=== PATIENT | female | born 1960 ===

== ENCOUNTER 2019-05-27 12:47 | Observation (INO) | payer BC ==
[2019-05-27] MEDS ORDERED: Albuterol/Ipratropium 3.0-0.5 MG/3 ML Neb Soln NEB ONE ×2 (12:58→15:23)
[2019-05-27] MEDS ORDERED: Levofloxacin/Dextrose 5%-Water 750 MG in Premix Bag 1 BAG IV ONE (12:59)
[2019-05-27] MEDS: Sodium Chloride 0.9% 1,000 ML IV SCH ×2 (13:12→23:35)
--- NOTE | 2019-05-27 13:19 | EDM.PDOC ---
ED HPI GENERAL MEDICAL PROBLEM - General Chief Complaint: Respiratory Problem Stated Complaint: COUGH Time Seen by Provider: 05/27/19 12:54 - History of Present Illness INITIAL COMMENTS - FREE TEXT/NARRATIVE: HISTORY AND PHYSICAL: History of present illness: Patient 58-year-old white female who presents with a concern of cough shortness of breath worsening over last week she was seen 1 week prior and diagnosed with pneumonia in the clinic she states she's had no improvement no fever chills nausea vomiting. Patient denies chest pain Review of systems: As per history of present illness and below otherwise all systems reviewed and negative. Past medical history: As per history of present illness and as reviewed below otherwise noncontributory. Surgical history: As per history of present illness and as reviewed below otherwise noncontributory. Social history: No reported history of drug or alcohol abuse. Family history: As per history of present illness and as reviewed below otherwise noncontributory. Physical exam: HEENT: Atraumatic, normocephalic, pupils reactive, negative for conjunctival pallor or scleral icterus, mucous membranes moist, throat clear, neck supple, nontender, trachea midline. Lungs: Coarse bilaterally with rhonchi and expiratory wheezing noted, breath sounds equal bilaterally, chest nontender. Heart: S1S2, regular, negative for clicks, rubs, or JVD. Abdomen: Soft, nondistended, nontender. Negative for masses or hepatosplenomegaly. Negative for costovertebral tenderness. Pelvis: Stable nontender. Genitourinary: Deferred. Rectal: Deferred. Extremities: Atraumatic, negative for cords or calf pain. Neurovascular unremarkable. Neuro: Awake, alert, oriented. Cranial nerves II through XII unremarkable. Cerebellum unremarkable. Motor and sensory unremarkable throughout. Exam nonfocal. Diagnostics: CBC CMP and BNP chest x-ray EKG blood culture 2 ABG Therapeutics: Levaquin 750 mg IV Solu-Medrol 125 mg IV albuterol ipratropium nebulizer saline at 125 mL an hour O2 2 L per nasal cannula daytime babysitter Impression: #1 dyspnea #2 history of pneumonia Definitive disposition and diagnosis as appropriate pending reevaluation and review of above. Chest Pain Score (Numeric/FACES): 8 - Related Data Allergies Allergy/AdvReac Type Severity Reaction Status Date / Time codeine Allergy Itching Verified 05/27/19 12:58 morphine Allergy Cannot Verified 06/29/16 11:15 Remember Penicillins Allergy Cannot Verified 06/29/16 11:15 Remember Home Meds: Home Meds Albuterol Sulfate 2 mg PO DAILY 05/27/16 [History] Albuterol [Proventil HFA] 6.7 gm INH Q6H 05/27/16 [History] Aspirin 325 mg PO DAILY 05/27/16 [History] Carvedilol 6.25 mg PO DAILY 05/27/16 [History] Hydrocodone/Acetaminophen [Hydrocodon-Acetaminophen 5-300] 1 each PO DAILY PRN 05/27/16 [History] Levothyroxine Sodium [Synthroid] 25 mcg PO DAILY 05/27/16 [History] Ondansetron HCl [Zofran] 4 mg PO DAILY PRN 05/27/16 [History] Pramipexole Di-HCl [Mirapex] 1.5 mg PO DAILY 05/27/16 [History] Simvastatin [Zocor] 20 mg PO ONETIME 05/27/16 [History] Trimethobenzamide HCl 100 gm MC DAILY 05/27/16 [History] buPROPion [Wellbutrin XL] 150 mg PO DAILY 05/27/16 [History] traMADol [Ultram] 50 mg PO ONETIME 05/27/16 [History] Past Medical History HEENT History: Reports: None Cardiovascular History: Reports: [place] Respiratory History: Reports: Asthma Gastrointestinal History: Reports: None Genitourinary History: Reports: None [employer] History: Reports: None Musculoskeletal History: Reports: None Neurological History: Reports: Alzheimers Disease Psychiatric History: Reports: None Endocrine/Metabolic History: Reports: None Hematologic History: Reports: None Immunologic History: Reports: None Oncologic (Cancer) History: Reports: None Dermatologic History: Reports: None - Infectious Disease History Infectious Disease History: Reports: Chicken Pox, Measles, Mumps - Past Surgical History Head Surgeries/Procedures: Reports: None HEENT Surgical History: Reports: Naso-Sinus Surgery Cardiovascular Surgical History: Reports: Coronary Artery Stent Respiratory Surgical History: Reports: None GI Surgical History: Reports: Bariatric Procedure Female Surgical History: Reports: Section, Other (See Below) Endocrine Surgical History: Reports: None Musculoskeletal Surgical History: Reports: Arthroscopic Knee, Other (See Below) Dermatological Surgical History: Reports: Plastic Surgical Reconstruction/Repair Social & Family History - Family History Family Medical History: Noncontributory - Tobacco Use Smoking Status *Q: Never Smoker - Caffeine Use Caffeine Use: Reports: None - Recreational Drug Use Recreational Drug Use: No - Living Situation & Occupation Living situation: Reports: , with Spouse Occupation: Employed ED ROS GENERAL - Review of Systems Review Of Systems: ROS reveals no pertinent complaints other than HPI. ED EXAM, GENERAL - Physical Exam Exam: See Below (See dictation) Course - Vital Signs Last Recorded V/S: Last Vital Signs Temp 36.7 C 05/27/19 12:55 Pulse 91 05/27/19 12:55 Resp 20 05/27/19 12:55 BP 142/91 H 05/27/19 12:55 Pulse Ox 89 L 05/27/19 12:55 - Orders/Labs/Meds Orders: Active Orders 24 hr Category Date Time Status EKG Documentation Completion [RC] STAT Care 05/27/19 12:56 Active RT Aerosol Therapy [RC] ASDIRECTED Care 05/27/19 12:59 Active B-TYPE NATRIURETIC PEPTIDE,BNP [CHEM] Stat Lab 05/27/19 13:18 Received CULTURE BLOOD [BC] Stat Lab 05/27/19 13:18 Received CULTURE BLOOD [BC] Stat Lab 05/27/19 13:28 Received Sodium Chloride 0.9% [Normal Saline] 1,000 ml Med 05/27/19 13:00 Active IV STAT Blood Culture x2 Reflex Set [OM.PC] Stat Oth 05/27/19 12:57 Ordered Medication Orders Sodium Chloride (Normal Saline) 1,000 mls @ 125 mls/hr IV STAT WENDY Last Admin: 05/27/19 13:12 Dose: 125 mls/hr Labs: Laboratory Tests 05/27/19 05/27/19 05/27/19 Range/Units 13:10 13:10 13:18 WBC 13.18 H (4.0-11.0) K/uL RBC 4.65 (4.30-5.90) M/uL Hgb 14.7 (12.0-16.0) g/dL Hct 44.4 (36.0-46.0) % MCV 95.5 (80.0-98.0) fL MCH 31.6 (27.0-32.0) pg MCHC 33.1 (31.0-37.0) g/dL RDW Std Deviation 47.9 (28.0-62.0) fl RDW Coeff of Danial 14 (11.0-15.0) % Plt Count 315 (150-400) K/uL MPV 9.90 (7.40-12.00) fL Neut % (Auto) 73.1 (48.0-80.0) % Lymph % (Auto) 21.2 (16.0-40.0) % Hettinger % (Auto) 4.7 (0.0-15.0) % Eos % (Auto) 0.8 (0.0-7.0) % Baso % (Auto) 0.2 (0.0-1.5) % Neut # (Auto) 9.6 H (1.4-5.7) K/uL Lymph # (Auto) 2.8 H (0.6-2.4) K/uL Hettinger # (Auto) 0.6 (0.0-0.8) K/uL Eos # (Auto) 0.1 (0.0-0.7) K/uL Baso # (Auto) 0.0 (0.0-0.1) K/uL Nucleated RBC % 0.0 /100WBC Nucleated RBCs # 0 K/uL INR ABG pH 7.453 H (7.35-7.45) ABG pCO2 34 L (35-45) mmHG ABG pO2 36 L* (75-100) mmHG ABG HCO3 24 (22-26) mEq/L ABG Total CO2 20.9 ABG Base Excess 0.4 (-2.0-2.0) Lactate 0.9 (0.20-2.00) mmol/L Sodium (136-145) mmol/L Potassium (3.5-5.1) mmol/L Chloride (98-107) mmol/L Carbon Dioxide (21.0-32.0) mmol/L BUN (7.0-18.0) mg/dL Creatinine (0.6-1.0) mg/dL Est Cr Clr Drug Dosing mL/min Estimated GFR (MDRD) ml/min Glucose (74-106) mg/dL Calcium (8.5-10.1) mg/dL Total Bilirubin (0.2-1.0) mg/dL AST (15-37) IU/L ALT (14-63) IU/L Alkaline Phosphatase (46-116) U/L Troponin I (0.000-0.056) ng/mL Total Protein (6.4-8.2) g/dL Albumin (3.4-5.0) g/dL Globulin (2.6-4.0) g/dL Albumin/Globulin Ratio (0.9-1.6) 05/27/19 05/27/19 Range/Units 13:18 13:18 WBC (4.0-11.0) K/uL RBC (4.30-5.90) M/uL Hgb (12.0-16.0) g/dL Hct (36.0-46.0) % MCV (80.0-98.0) fL MCH (27.0-32.0) pg MCHC (31.0-37.0) g/dL RDW Std Deviation (28.0-62.0) fl RDW Coeff of Danial (11.0-15.0) % Plt Count (150-400) K/uL MPV (7.40-12.00) fL Neut % (Auto) (48.0-80.0) % Lymph % (Auto) (16.0-40.0) % Hettinger % (Auto) (0.0-15.0) % Eos % (Auto) (0.0-7.0) % Baso % (Auto) (0.0-1.5) % Neut # (Auto) (1.4-5.7) K/uL Lymph # (Auto) (0.6-2.4) K/uL Hettinger # (Auto) (0.0-0.8) K/uL Eos # (Auto) (0.0-0.7) K/uL Baso # (Auto) (0.0-0.1) K/uL Nucleated RBC % /100WBC Nucleated RBCs # K/uL INR 0.93 ABG pH (7.35-7.45) ABG pCO2 (35-45) mmHG ABG pO2 (75-100) mmHG ABG HCO3 (22-26) mEq/L ABG Total CO2 ABG Base Excess (-2.0-2.0) Lactate (0.20-2.00) mmol/L Sodium 140 (136-145) mmol/L Potassium 3.6 (3.5-5.1) mmol/L Chloride 105 (98-107) mmol/L Carbon Dioxide 24.5 (21.0-32.0) mmol/L BUN 10 (7.0-18.0) mg/dL Creatinine 0.8 (0.6-1.0) mg/dL Est Cr Clr Drug Dosing 60.62 mL/min Estimated GFR (MDRD) > 60.0 ml/min Glucose 102 (74-106) mg/dL Calcium 9.0 (8.5-10.1) mg/dL Total Bilirubin 0.8 (0.2-1.0) mg/dL AST 23 (15-37) IU/L ALT 19 (14-63) IU/L Alkaline Phosphatase 103 (46-116) U/L Troponin I < 0.050 (0.000-0.056) ng/mL Total Protein 6.8 (6.4-8.2) g/dL Albumin 2.8 L (3.4-5.0) g/dL Globulin 4.0 (2.6-4.0) g/dL Albumin/Globulin Ratio 0.7 L (0.9-1.6) Meds: Medications Generic Name Dose Route Start Last Admin Trade Name Freq PRN Reason Stop Dose Admin Sodium Chloride 1,000 mls @ 125 mls/hr 05/27/19 13:00 05/27/19 13:12 Normal Saline IV 125 mls/hr STAT WENDY Administration Discontinued Medications Generic Name Dose Route Start Last Admin Trade Name Freq PRN Reason Stop Dose Admin Albuterol/Ipratropium 3 ml 05/27/19 12:58 05/27/19 13:12 Duoneb 3.0-0.5 Mg/3 Ml NEB 05/27/19 12:59 3 ml ONETIME ONE Administration Levofloxacin/Dextrose 750 mg/ 150 mls @ 100 mls/hr 05/27/19 12:59 05/27/19 13 :12 Premix IV 05/27/19 14:28 100 mls/hr ONETIME ONE Administration Departure - Departure Time of Disposition: 15:22 Disposition: Refer to Observation Condition: Good Clinical Impression: Pneumonia - Discharge Information Referrals: Shiva Al, [Primary Care Provider] - Forms: ED Department Discharge - My Orders Last 24 Hours: My Active Orders 05/27/19 12:56 EKG Documentation Completion [RC] STAT 05/27/19 12:57 Blood Culture x2 Reflex Set [OM.PC] Stat 05/27/19 12:59 RT Aerosol Therapy [RC] ASDIRECTED 05/27/19 13:00 Sodium Chloride 0.9% [Normal Saline] 1,000 ml IV STAT 05/27/19 13:18 B-TYPE NATRIURETIC PEPTIDE,BNP [CHEM] Stat CULTURE BLOOD [BC] Stat 05/27/19 13:28 CULTURE BLOOD [BC] Stat - Assessment/Plan Last 24 Hours: My Active Orders 05/27/19 12:56 EKG Documentation Completion [RC] STAT 05/27/19 12:57 Blood Culture x2 Reflex Set [OM.PC] Stat 05/27/19 12:59 RT Aerosol Therapy [RC] ASDIRECTED 05/27/19 13:00 Sodium Chloride 0.9% [Normal Saline] 1,000 ml IV STAT 05/27/19 13:18 B-TYPE NATRIURETIC PEPTIDE,BNP [CHEM] Stat CULTURE BLOOD [BC] Stat 05/27/19 13:28 CULTURE BLOOD [BC] Stat
--- NOTE | 2019-05-27 13:47 | CR ---
Chest: Portable view of the chest was obtained. Comparison: Chest x-ray of 08/10/17. Heart size and mediastinum are within normal limits for portable technique. Diffuse increased density is seen throughout both sides of the chest. Bony structures are unremarkable. Impression: 1. Diffuse increased density on both sides of chest with differential including pulmonary vascular congestion or early pulmonary edema as well as diffuse pneumonia. Diagnostic code #5 MTDD
[2019-05-27 14:09] LABS: BLOOD UREA NITROGEN,BUN 10 mg/dL (7.0-18.0); CARBON DIOXIDE,CO2 24.5 mmol/L (21.0-32.0); CHLORIDE,CL 105 mmol/L (98-107); GLUCOSE RANDOM 102 mg/dL (74-106); POTASSIUM,K 3.6 mmol/L (3.5-5.1); SODIUM,NA 140 mmol/L (136-145)
[2019-05-27] MEDS ORDERED: Carvedilol 6.25 MG Tab PO SCH (18:45)
--- NOTE | 2019-05-27 19:36 | PCM.HP.2 ---
<Kwasi Brown - Last Filed: 05/27/19 19:30> H&P History of Present Illness - General Date of Service: 05/27/19 Admit Problem/Dx: Admission Diagnosis/Problem Admission Diagnosis/Problem Pneumonia Source of Information: Patient - History of Present Illness Initial Comments - Free Text/Narative: patient is a 58-year-old female with a past medical history of a previous CO, lupus,hypothyroidism, hypertension: presenting to ED with worsening shortness of breath 1 week. Initially seen by primary care provider and was given azithromycin, prednisone, and benzonatate. One week ago patient states that she was choking on something; after which she felt something going down "the wrong tube"; following morning developed a fever with a persistent productive cough. fever: MAXIMUM TEMPERATURE 101.4 last night. otherwise she sates she is feeling lethargic, increasing chest congestion and general malaise. endorses no current tobacco abuse; however used cigarettes for a pack per day x 20 years. Chest Pain Score (Numeric/FACES): 8 headache Pain Score (Numeric/FACES): 5 - Related Data Allergies/Adverse Reactions: Allergies Allergy/AdvReac Type Severity Reaction Status Date / Time codeine Allergy Itching Verified 05/27/19 18:58 morphine Allergy Cannot Verified 05/27/19 18:58 Remember Penicillins Allergy Cannot Verified 05/27/19 18:58 Remember Home Medications: Home Meds Ondansetron HCl [Zofran] 4 mg PO DAILY PRN 05/27/16 [History] Trimethobenzamide HCl 100 gm MC DAILY 05/27/16 [History] traMADol [Ultram] 50 mg PO ASDIRECTED PRN 05/27/16 [History] Azithromycin 500 mg PO DAILY 05/27/19 [History] Benzonatate 200 mg PO Q8HR PRN 05/27/19 [History] Pramipexole [Mirapex] 0.5 mg PO ASDIRECTED PRN 05/28/19 [History] Past Medical History HEENT History: Reports: None Cardiovascular History: Reports: CO Respiratory History: Reports: Asthma Gastrointestinal History: Reports: None Genitourinary History: Reports: None [employer] History: Reports: None Musculoskeletal History: Reports: None Neurological History: Reports: Neuropathy, Peripheral Psychiatric History: Reports: None Endocrine/Metabolic History: Reports: None Hematologic History: Reports: None Immunologic History: Reports: None Oncologic (Cancer) History: Reports: None Dermatologic History: Reports: None - Infectious Disease History Infectious Disease History: Reports: Chicken Pox, Measles, Mumps - Past Surgical History Head Surgeries/Procedures: Reports: None HEENT Surgical History: Reports: Naso-Sinus Surgery Cardiovascular Surgical History: Reports: Coronary Artery Stent Respiratory Surgical History: Reports: None GI Surgical History: Reports: Bariatric Procedure Female Surgical History: Reports: Section, Other (See Below) Endocrine Surgical History: Reports: None Musculoskeletal Surgical History: Reports: Arthroscopic Knee, Other (See Below) Other Musculoskeletal Surgeries/Procedures:: toes and ankles Dermatological Surgical History: Reports: Plastic Surgical Reconstruction/Repair Social & Family History - Family History Family Medical History: Noncontributory - Tobacco Use Smoking Status *Q: Never Smoker Second Hand Smoke Exposure: No - Caffeine Use Caffeine Use: Reports: Soda - Recreational Drug Use Recreational Drug Use: No - Living Situation & Occupation Living situation: Reports: , with Spouse Occupation: Employed H&P Review of Systems - Review of Systems: Review Of Systems: See Below General: Reports: Fever, Malaise HEENT: Reports: No Symptoms Pulmonary: Reports: Shortness of Breath, Wheezing, Cough, Sputum. Denies: Pleuritic Chest Pain Cardiovascular: Denies: Chest Pain, Palpitations Gastrointestinal: Reports: No Symptoms. Denies: Abdominal Pain, Constipation, Diarrhea Genitourinary: Reports: No Symptoms Musculoskeletal: Reports: No Symptoms Skin: Reports: No Symptoms Psychiatric: Reports: No Symptoms Neurological: Reports: Headache Exam - Exam Exam: See Below - Vital Signs Vital Signs: Last Vital Signs Temp 98.8 F 05/27/19 18:50 Pulse 78 05/27/19 18:50 Resp 20 05/27/19 18:50 BP 117/68 05/27/19 18:50 Pulse Ox 96 05/27/19 18:50 Weight: 78.29 kg - Exam Quality Assessment: Supplemental Oxygen General: Alert, Oriented HEENT: EOMI, Hearing Intact Neck: Supple, Trachea Midline Lungs: Decreased Breath Sounds, Crackles, Rhonchi Cardiovascular: Regular Rate, Regular Rhythm GI/Abdominal Exam: Soft, Non-Tender Back Exam: Normal Inspection Extremities: Normal Inspection, Normal Range of Motion Skin: Warm, Dry, Intact Neuro Extensive - Mental Status: Alert, Oriented x3, Normal Mood/Affect Psychiatric: Alert, Anxious (she was anxious above finding someone to take care of her dog at home) - Patient Data Lab Results Last 24 hrs: Laboratory Results - last 24 hr 05/27/19 05/27/19 05/27/19 Range/Units 13:10 13:10 13:18 WBC 13.18 H (4.0-11.0) K/uL RBC 4.65 (4.30-5.90) M/uL Hgb 14.7 (12.0-16.0) g/dL Hct 44.4 (36.0-46.0) % MCV 95.5 (80.0-98.0) fL MCH 31.6 (27.0-32.0) pg MCHC 33.1 (31.0-37.0) g/dL RDW Std Deviation 47.9 (28.0-62.0) fl RDW Coeff of Danial 14 (11.0-15.0) % Plt Count 315 (150-400) K/uL MPV 9.90 (7.40-12.00) fL Neut % (Auto) 73.1 (48.0-80.0) % Lymph % (Auto) 21.2 (16.0-40.0) % [place]ferro % (Auto) 4.7 (0.0-15.0) % Eos % (Auto) 0.8 (0.0-7.0) % Baso % (Auto) 0.2 (0.0-1.5) % Neut # (Auto) 9.6 H (1.4-5.7) K/uL Lymph # (Auto) 2.8 H (0.6-2.4) K/uL [place]ferro # (Auto) 0.6 (0.0-0.8) K/uL Eos # (Auto) 0.1 (0.0-0.7) K/uL Baso # (Auto) 0.0 (0.0-0.1) K/uL Nucleated RBC % 0.0 /100WBC Nucleated RBCs # 0 K/uL INR ABG pH 7.453 H (7.35-7.45) ABG pCO2 34 L (35-45) mmHG ABG pO2 36 L* (75-100) mmHG ABG HCO3 24 (22-26) mEq/L ABG Total CO2 20.9 ABG Base Excess 0.4 (-2.0-2.0) Lactate 0.9 (0.20-2.00) mmol/L Sodium (136-145) mmol/L Potassium (3.5-5.1) mmol/L Chloride (98-107) mmol/L Carbon Dioxide (21.0-32.0) mmol/L BUN (7.0-18.0) mg/dL Creatinine (0.6-1.0) mg/dL Est Cr Clr Drug Dosing mL/min Estimated GFR (MDRD) ml/min Glucose (74-106) mg/dL Calcium (8.5-10.1) mg/dL Total Bilirubin (0.2-1.0) mg/dL AST (15-37) IU/L ALT (14-63) IU/L Alkaline Phosphatase (46-116) U/L Troponin I (0.000-0.056) ng/mL Total Protein (6.4-8.2) g/dL Albumin (3.4-5.0) g/dL Globulin (2.6-4.0) g/dL Albumin/Globulin Ratio (0.9-1.6) 05/27/19 05/27/19 Range/Units 13:18 13:18 WBC (4.0-11.0) K/uL RBC (4.30-5.90) M/uL Hgb (12.0-16.0) g/dL Hct (36.0-46.0) % MCV (80.0-98.0) fL MCH (27.0-32.0) pg MCHC (31.0-37.0) g/dL RDW Std Deviation (28.0-62.0) fl RDW Coeff of Danial (11.0-15.0) % Plt Count (150-400) K/uL MPV (7.40-12.00) fL Neut % (Auto) (48.0-80.0) % Lymph % (Auto) (16.0-40.0) % [place]ferro % (Auto) (0.0-15.0) % Eos % (Auto) (0.0-7.0) % Baso % (Auto) (0.0-1.5) % Neut # (Auto) (1.4-5.7) K/uL Lymph # (Auto) (0.6-2.4) K/uL [place]ferro # (Auto) (0.0-0.8) K/uL Eos # (Auto) (0.0-0.7) K/uL Baso # (Auto) (0.0-0.1) K/uL Nucleated RBC % /100WBC Nucleated RBCs # K/uL INR 0.93 ABG pH (7.35-7.45) ABG pCO2 (35-45) mmHG ABG pO2 (75-100) mmHG ABG HCO3 (22-26) mEq/L ABG Total CO2 ABG Base Excess (-2.0-2.0) Lactate (0.20-2.00) mmol/L Sodium 140 (136-145) mmol/L Potassium 3.6 (3.5-5.1) mmol/L Chloride 105 (98-107) mmol/L Carbon Dioxide 24.5 (21.0-32.0) mmol/L BUN 10 (7.0-18.0) mg/dL Creatinine 0.8 (0.6-1.0) mg/dL Est Cr Clr Drug Dosing 60.62 mL/min Estimated GFR (MDRD) > 60.0 ml/min Glucose 102 (74-106) mg/dL Calcium 9.0 (8.5-10.1) mg/dL Total Bilirubin 0.8 (0.2-1.0) mg/dL AST 23 (15-37) IU/L ALT 19 (14-63) IU/L Alkaline Phosphatase 103 (46-116) U/L Troponin I < 0.050 (0.000-0.056) ng/mL Total Protein 6.8 (6.4-8.2) g/dL Albumin 2.8 L (3.4-5.0) g/dL Globulin 4.0 (2.6-4.0) g/dL Albumin/Globulin Ratio 0.7 L (0.9-1.6) Result Diagrams: 05/27/19 13:18 05/27/19 13:18 - Problem List (1) Pneumonia SNOMED Code(s): 665413150 ICD Code: J18.9 - PNEUMONIA, UNSPECIFIED ORGANISM Status: Acute Current Visit: Yes (2) HTN (hypertension) SNOMED Code(s): 47836894 ICD Code: I10 - ESSENTIAL (PRIMARY) HYPERTENSION Status: Chronic Priority : Medium Current Visit: No Qualifiers: Hypertension type: essential hypertension Qualified Code(s): I10 - Essential (primary) hypertension Problem List Initiated/Reviewed/Updated: Yes Orders Last 24hrs: Active Orders 24 hr Category Date Time Status Patient Status [ADT] Stat ADT 05/27/19 15:26 Active EKG Documentation Completion [RC] STAT Care 05/27/19 12:56 Active Intake and Output [RC] ASDIRECTED Care 05/27/19 18:23 Active RT Aerosol Therapy [RC] ASDIRECTED Care 05/27/19 12:59 Active RT Aerosol Therapy [RC] ASDIRECTED Care 05/27/19 15:23 Active RT Aerosol Therapy [RC] ASDIRECTED Care 05/27/19 18:29 Active Telemetry Monitoring [Cardiac Monitoring] [RC] . Care 05/27/19 18:24 Active DIRECTED Vital Signs [RC] PER UNIT ROUTINE Care 05/27/19 18:23 Active Heart Healthy Diet [DIET] Diet 05/28/19 Breakfast Active B-TYPE NATRIURETIC PEPTIDE,BNP [CHEM] Stat Lab 05/27/19 13:18 Received CULTURE BLOOD [BC] Stat Lab 05/27/19 13:18 Received CULTURE BLOOD [BC] Stat Lab 05/27/19 13:28 Received Acetaminophen [Tylenol] Med 05/27/19 18:26 Active 650 mg PO Q6H PRN Albuterol/Ipratropium [DuoNeb 3.0-0.5 MG/3 ML] Med 05/27/19 18:26 Active 3 ml NEB Q4HRRT PRN Aspirin Med 05/28/19 09:00 Active 325 mg PO DAILY Dextromethorphan/guaiFENesin [Robitussin DM] Med 05/27/19 18:25 Active 10 ml PO Q6H PRN Levofloxacin/Dextrose 5%-Water [Levaquin in D5W 750 MG/ Med 05/28/19 13:00 Active 150 ML] 750 mg Premix Bag 1 bag IV Q24H Pramipexole [Mirapex] Med 05/27/19 18:45 Active 1.5 mg PO DAILY Sodium Chloride 0.9% [Normal Saline] 1,000 ml Med 05/27/19 13:00 Active IV STAT buPROPion [Wellbutrin XL] Med 05/28/19 09:00 Active 150 mg PO DAILY Blood Culture x2 Reflex Set [OM.PC] Stat Oth 05/27/19 12:57 Ordered Code Status [Resuscitation Status] Routine Resus Stat 05/27/19 18:22 Ordered Medication Orders Acetaminophen (Tylenol) 650 mg PO Q6H PRN PRN Reason: Fever Albuterol/Ipratropium (Duoneb 3.0-0.5 Mg/3 Ml) 3 ml NEB Q4HRRT PRN PRN Reason: Shortness of Breath Aspirin (Aspirin) 325 mg PO DAILY [facility] Bupropion HCl (Wellbutrin Xl) 150 mg PO DAILY [facility] Guaifenesin/Dextromethorphan (Robitussin Dm) 10 ml PO Q6H PRN PRN Reason: Congestion Sodium Chloride (Normal Saline) 1,000 mls @ 125 mls/hr IV STAT [facility] Last Admin: 05/27/19 13:12 Dose: 125 mls/hr Levofloxacin/Dextrose 750 mg/ (Premix) 150 mls @ 100 mls/hr IV Q24H [facility] Stop: 06/03/19 14:29 Pramipexole Dihydrochloride (Mirapex) 1.5 mg PO DAILY [facility] Assessment/Plan Comment:: assessment: 1. Pneumonia possibly secondary to aspiration. 2. Past medical history: lupus, hypertension, hypothyroidism Plan: 1. admit to observation. DNR/DNI. Intake outtake per routine. Vitals per routine. Telemetry. Diet:heart healthy. DVT prophylaxis: SCDs. 2. Pneumonia: continue Levaquin 750 IV_DAILY. We'll consider switching antibiotics to ampicillin sulbactam; if no response./IV fluids 125 mL hourly. Dextromethorphan/guaifenesin when necessary. Tylenol 650 every 6 hours when necessary. lso consider a swallow study; if aspiration is a more likely cause of pneumonia. 3. past medical history: patient claims to not taking medication for blood pressure, hypothyroidism or depression. We'll continue other medications. <Luis Steawrt - Last Filed: 05/28/19 16:24> H&P History of Present Illness - General Admit Problem/Dx: Admission Diagnosis/Problem Admission Diagnosis/Problem Pneumonia I have seen and examined the patient independently of Dr. Stephanie MD. I have reviewed and agree with the plan of care as outlined for this patient by him. I have discussed the case with him. Please see orders. Exam - Vital Signs Vital Signs: Last Vital Signs Temp 37.2 C 05/28/19 11:42 Pulse 72 05/28/19 11:42 Resp 18 05/28/19 11:42 BP 97/59 L 05/28/19 11:42 Pulse Ox 92 L 05/28/19 11:42 - Patient Data Lab Results Last 24 hrs: Laboratory Results - last 24 hr 05/28/19 05/28/19 05/28/19 Range/Units 05:50 05:50 07:37 WBC 10.96 (4.0-11.0) K/uL RBC 4.28 L (4.30-5.90) M/uL Hgb 13.3 (12.0-16.0) g/dL Hct 41.5 (36.0-46.0) % MCV 97.0 (80.0-98.0) fL MCH 31.1 (27.0-32.0) pg MCHC 32.0 (31.0-37.0) g/dL RDW Std Deviation 48.3 (28.0-62.0) fl RDW Coeff of Danial 14 (11.0-15.0) % Plt Count 311 (150-400) K/uL MPV 9.80 (7.40-12.00) fL Neut % (Auto) 72.1 (48.0-80.0) % Lymph % (Auto) 22.0 (16.0-40.0) % [place]ferro % (Auto) 4.7 (0.0-15.0) % Eos % (Auto) 1.0 (0.0-7.0) % Baso % (Auto) 0.2 (0.0-1.5) % Neut # (Auto) 7.9 H (1.4-5.7) K/uL Lymph # (Auto) 2.4 (0.6-2.4) K/uL [place]ferro # (Auto) 0.5 (0.0-0.8) K/uL Eos # (Auto) 0.1 (0.0-0.7) K/uL Baso # (Auto) 0.0 (0.0-0.1) K/uL Nucleated RBC % 0.0 /100WBC Nucleated RBCs # 0 K/uL Lactate 0.7 (0.20-2.00) mmol/L Sodium 142 (136-145) mmol/L Potassium 3.8 (3.5-5.1) mmol/L Chloride 108 H (98-107) mmol/L Carbon Dioxide 22.8 (21.0-32.0) mmol/L BUN 8 (7.0-18.0) mg/dL Creatinine 0.6 (0.6-1.0) mg/dL Est Cr Clr Drug Dosing 80.83 mL/min Estimated GFR (MDRD) > 60.0 ml/min Glucose 94 (74-106) mg/dL Calcium 8.4 L (8.5-10.1) mg/dL Total Bilirubin 0.8 (0.2-1.0) mg/dL AST 21 (15-37) IU/L ALT 14 (14-63) IU/L Alkaline Phosphatase 86 (46-116) U/L Total Protein 5.8 L (6.4-8.2) g/dL Albumin 2.2 L (3.4-5.0) g/dL Globulin 3.6 (2.6-4.0) g/dL Albumin/Globulin Ratio 0.6 L (0.9-1.6) Result Diagrams: 05/28/19 05:50 05/28/19 05:50 Mitch Results Last 24 hrs: Microbiology 05/27/19 13:28 Aerobic Blood Culture - Preliminary Blood - Venous - Lab Draw NO GROWTH AFTER 1 DAY Anaerobic Blood Culture - Preliminary NO GROWTH AFTER 1 DAY 05/27/19 13:18 Aerobic Blood Culture - Preliminary Blood - Venous NO GROWTH AFTER 1 DAY Anaerobic Blood Culture - Preliminary NO GROWTH AFTER 1 DAY Orders Last 24hrs: Active Orders 24 hr Category Date Time Status Patient Status [ADT] Stat ADT 05/27/19 15:26 Active Intake and Output [RC] ASDIRECTED Care 05/27/19 18:23 Active Nursing Bedside Swallow Screen [RC] ASDIRECTED Care 05/28/19 08:00 Active RT Aerosol Therapy [RC] ASDIRECTED Care 05/27/19 18:29 Active Telemetry Monitoring [Cardiac Monitoring] [RC] Q8H Care 05/27/19 18:24 Active Vital Signs [RC] Q4H Care 05/27/19 18:23 Active Heart Healthy Diet [DIET] Diet 05/28/19 Breakfast Active Chest 2V [CR] AM Exams 05/29/19 05:11 Ordered CBC WITH AUTO DIFF [HEME] AM Lab 05/29/19 05:11 Ordered CBC WITH AUTO DIFF [HEME] AM Lab 05/30/19 05:11 Ordered COMPREHENSIVE METABOLIC PN,CMP [CHEM] AM Lab 05/29/19 05:11 Ordered COMPREHENSIVE METABOLIC PN,CMP [CHEM] AM Lab 05/30/19 05:11 Ordered Acetaminophen [Tylenol] Med 05/27/19 18:26 Active 650 mg PO Q6H PRN Albuterol/Ipratropium [DuoNeb 3.0-0.5 MG/3 ML] Med 05/27/19 18:26 Active 3 ml NEB Q4HRRT PRN Aspirin Med 05/28/19 09:00 Active 325 mg PO DAILY Benzonatate [Tessalon Perles] Med 05/28/19 06:00 Active 200 mg PO TID Dextromethorphan/guaiFENesin [Robitussin DM] Med 05/27/19 18:25 Active 10 ml PO Q6H PRN Levofloxacin/Dextrose 5%-Water [Levaquin in D5W 750 MG/ Med 05/28/19 13:00 Active 150 ML] 750 mg Premix Bag 1 bag IV Q24H Pramipexole [Mirapex] Med 05/28/19 21:00 Active 1.5 mg PO BEDTIME buPROPion [Wellbutrin XL] Med 05/28/19 09:00 Active 150 mg PO DAILY Code Status [Resuscitation Status] Routine Resus Stat 05/27/19 18:22 Ordered Medication Orders Acetaminophen (Tylenol) 650 mg PO Q6H PRN PRN Reason: Fever Last Admin: 05/28/19 15:52 Dose: 650 mg Admin: 05/28/19 09:00 Dose: 650 mg Admin: 05/28/19 02:18 Dose: 650 mg Admin: 05/27/19 19:57 Dose: 650 mg Albuterol/Ipratropium (Duoneb 3.0-0.5 Mg/3 Ml) 3 ml NEB Q4HRRT PRN PRN Reason: Shortness of Breath Last Admin: 05/28/19 15:45 Dose: 3 ml Admin: 05/28/19 09:06 Dose: 3 ml Aspirin (Aspirin) 325 mg PO DAILY [facility] Last Admin: 05/28/19 09:07 Dose: Not Given Benzonatate (Tessalon Perles) 200 mg PO TID [facility] Last Admin: 05/28/19 13:09 Dose: 200 mg Admin: 05/28/19 06:02 Dose: 200 mg Bupropion HCl (Wellbutrin Xl) 150 mg PO DAILY [facility] Last Admin: 05/28/19 09:07 Dose: Guaifenesin/Dextromethorphan (Robitussin Dm) 10 ml PO Q6H PRN PRN Reason: Congestion Last Admin: 05/28/19 00:34 Dose: 10 ml Sodium Chloride (Normal Saline) 1,000 mls @ 125 mls/hr IV STAT [facility] Last Admin: 05/28/19 15:54 Dose: 125 mls/hr Infusion: 05/28/19 15:13 Dose: 125 mls/hr Admin: 05/28/19 07:13 Dose: 125 mls/hr Infusion: 05/28/19 07:13 Dose: 125 mls/hr Admin: 05/27/19 23:35 Dose: 125 mls/hr Infusion: 05/27/19 21:12 Dose: 125 mls/hr Admin: 05/27/19 13:12 Dose: 125 mls/hr Levofloxacin/Dextrose 750 mg/ (Premix) 150 mls @ 100 mls/hr IV Q24H [facility] Stop: 06/03/19 14:29 Last Admin: 05/28/19 13:08 Dose: 100 mls/hr Pramipexole Dihydrochloride (Mirapex) 1.5 mg PO BEDTIME [facility]
[2019-05-27] MEDS: Acetaminophen 325 MG Tab PO PRN (19:57)
[2019-05-27] MEDS: Pramipexole 0.25 MG Tab PO SCH (19:57)
[2019-05-28] MEDS: guaiFENesin/Dextromethorphan 100-10 MG/5 ML Soln 10 ML Cup PO PRN ×2 (00:34→21:14)
[2019-05-28] MEDS: Acetaminophen 325 MG Tab PO PRN ×3 (02:18→15:52)
[2019-05-28] MEDS: Benzonatate 100 MG Cap PO SCH ×2 (06:02→13:09)
[2019-05-28 06:59] LABS: BLOOD UREA NITROGEN,BUN 8 mg/dL (7.0-18.0); CARBON DIOXIDE,CO2 22.8 mmol/L (21.0-32.0); CHLORIDE,CL 108 mmol/L (98-107); GLUCOSE RANDOM 94 mg/dL (74-106); POTASSIUM,K 3.8 mmol/L (3.5-5.1); SODIUM,NA 142 mmol/L (136-145)
[2019-05-28] MEDS: Sodium Chloride 0.9% 1,000 ML IV SCH ×2 (07:13→15:54)
[2019-05-28] MEDS ORDERED: Aspirin 325 MG Tab PO SCH (09:00)
[2019-05-28] MEDS ORDERED: buPROPion 150 MG Tab.ER PO SCH (09:00)
[2019-05-28] MEDS: Albuterol/Ipratropium 3.0-0.5 MG/3 ML Neb Soln NEB PRN ×3 (09:06→21:24)
[2019-05-28] MEDS: Pramipexole 0.25 MG Tab PO SCH (09:08)
--- NOTE | 2019-05-28 10:04 | PCM.PN ---
- General Info Date of Service: 05/28/19 Subjective Update: patient seen at bedside: states she is feeling better compared to last night. Still having some problem breathing; states her coughing kept her up overnight. otherwise no new complaints - Patient Data Vitals - Most Recent: Last Vital Signs Temp 98.7 F 05/28/19 07:56 Pulse 62 05/28/19 07:56 Resp 18 05/28/19 07:56 BP 120/72 05/28/19 07:56 Pulse Ox 95 05/28/19 07:56 Weight - Most Recent: 173 lb 4.8 oz I&O - Last 24 Hours: Intake & Output 05/27/19 05/28/19 05/28/19 22:59 06:59 14:59 Intake Total 914 Output Total 600 Balance 314 Lab Results Last 24 Hours: Laboratory Results - last 24 hr 05/27/19 05/27/19 05/27/19 Range/Units 13:10 13:10 13:18 WBC 13.18 H (4.0-11.0) K/uL RBC 4.65 (4.30-5.90) M/uL Hgb 14.7 (12.0-16.0) g/dL Hct 44.4 (36.0-46.0) % MCV 95.5 (80.0-98.0) fL MCH 31.6 (27.0-32.0) pg MCHC 33.1 (31.0-37.0) g/dL RDW Std Deviation 47.9 (28.0-62.0) fl RDW Coeff of Danial 14 (11.0-15.0) % Plt Count 315 (150-400) K/uL MPV 9.90 (7.40-12.00) fL Neut % (Auto) 73.1 (48.0-80.0) % Lymph % (Auto) 21.2 (16.0-40.0) % Orange % (Auto) 4.7 (0.0-15.0) % Eos % (Auto) 0.8 (0.0-7.0) % Baso % (Auto) 0.2 (0.0-1.5) % Neut # (Auto) 9.6 H (1.4-5.7) K/uL Lymph # (Auto) 2.8 H (0.6-2.4) K/uL [place] # (Auto) 0.6 (0.0-0.8) K/uL Eos # (Auto) 0.1 (0.0-0.7) K/uL Baso # (Auto) 0.0 (0.0-0.1) K/uL Nucleated RBC % 0.0 /100WBC Nucleated RBCs # 0 K/uL INR ABG pH 7.453 H (7.35-7.45) ABG pCO2 34 L (35-45) mmHG ABG pO2 36 L* (75-100) mmHG ABG HCO3 24 (22-26) mEq/L ABG Total CO2 20.9 ABG Base Excess 0.4 (-2.0-2.0) Lactate 0.9 (0.20-2.00) mmol/L Sodium (136-145) mmol/L Potassium (3.5-5.1) mmol/L Chloride (98-107) mmol/L Carbon Dioxide (21.0-32.0) mmol/L BUN (7.0-18.0) mg/dL Creatinine (0.6-1.0) mg/dL Est Cr Clr Drug Dosing mL/min Estimated GFR (MDRD) ml/min Glucose (74-106) mg/dL Calcium (8.5-10.1) mg/dL Total Bilirubin (0.2-1.0) mg/dL AST (15-37) IU/L ALT (14-63) IU/L Alkaline Phosphatase (46-116) U/L Troponin I (0.000-0.056) ng/mL Total Protein (6.4-8.2) g/dL Albumin (3.4-5.0) g/dL Globulin (2.6-4.0) g/dL Albumin/Globulin Ratio (0.9-1.6) 05/27/19 05/27/19 05/28/19 Range/Units 13:18 13:18 05:50 WBC 10.96 (4.0-11.0) K/uL RBC 4.28 L (4.30-5.90) M/uL Hgb 13.3 (12.0-16.0) g/dL Hct 41.5 (36.0-46.0) % MCV 97.0 (80.0-98.0) fL MCH 31.1 (27.0-32.0) pg MCHC 32.0 (31.0-37.0) g/dL RDW Std Deviation 48.3 (28.0-62.0) fl RDW Coeff of Danial 14 (11.0-15.0) % Plt Count 311 (150-400) K/uL MPV 9.80 (7.40-12.00) fL Neut % (Auto) 72.1 (48.0-80.0) % Lymph % (Auto) 22.0 (16.0-40.0) % [place] % (Auto) 4.7 (0.0-15.0) % Eos % (Auto) 1.0 (0.0-7.0) % Baso % (Auto) 0.2 (0.0-1.5) % Neut # (Auto) 7.9 H (1.4-5.7) K/uL Lymph # (Auto) 2.4 (0.6-2.4) K/uL [place] # (Auto) 0.5 (0.0-0.8) K/uL Eos # (Auto) 0.1 (0.0-0.7) K/uL Baso # (Auto) 0.0 (0.0-0.1) K/uL Nucleated RBC % 0.0 /100WBC Nucleated RBCs # 0 K/uL INR 0.93 ABG pH (7.35-7.45) ABG pCO2 (35-45) mmHG ABG pO2 (75-100) mmHG ABG HCO3 (22-26) mEq/L ABG Total CO2 ABG Base Excess (-2.0-2.0) Lactate (0.20-2.00) mmol/L Sodium 140 (136-145) mmol/L Potassium 3.6 (3.5-5.1) mmol/L Chloride 105 (98-107) mmol/L Carbon Dioxide 24.5 (21.0-32.0) mmol/L BUN 10 (7.0-18.0) mg/dL Creatinine 0.8 (0.6-1.0) mg/dL Est Cr Clr Drug Dosing 60.62 mL/min Estimated GFR (MDRD) > 60.0 ml/min Glucose 102 (74-106) mg/dL Calcium 9.0 (8.5-10.1) mg/dL Total Bilirubin 0.8 (0.2-1.0) mg/dL AST 23 (15-37) IU/L ALT 19 (14-63) IU/L Alkaline Phosphatase 103 (46-116) U/L Troponin I < 0.050 (0.000-0.056) ng/mL Total Protein 6.8 (6.4-8.2) g/dL Albumin 2.8 L (3.4-5.0) g/dL Globulin 4.0 (2.6-4.0) g/dL Albumin/Globulin Ratio 0.7 L (0.9-1.6) 05/28/19 05/28/19 Range/Units 05:50 07:37 WBC (4.0-11.0) K/uL RBC (4.30-5.90) M/uL Hgb (12.0-16.0) g/dL Hct (36.0-46.0) % MCV (80.0-98.0) fL MCH (27.0-32.0) pg MCHC (31.0-37.0) g/dL RDW Std Deviation (28.0-62.0) fl RDW Coeff of Danial (11.0-15.0) % Plt Count (150-400) K/uL MPV (7.40-12.00) fL Neut % (Auto) (48.0-80.0) % Lymph % (Auto) (16.0-40.0) % [place] % (Auto) (0.0-15.0) % Eos % (Auto) (0.0-7.0) % Baso % (Auto) (0.0-1.5) % Neut # (Auto) (1.4-5.7) K/uL Lymph # (Auto) (0.6-2.4) K/uL [place] # (Auto) (0.0-0.8) K/uL Eos # (Auto) (0.0-0.7) K/uL Baso # (Auto) (0.0-0.1) K/uL Nucleated RBC % /100WBC Nucleated RBCs # K/uL INR ABG pH (7.35-7.45) ABG pCO2 (35-45) mmHG ABG pO2 (75-100) mmHG ABG HCO3 (22-26) mEq/L ABG Total CO2 ABG Base Excess (-2.0-2.0) Lactate 0.7 (0.20-2.00) mmol/L Sodium 142 (136-145) mmol/L Potassium 3.8 (3.5-5.1) mmol/L Chloride 108 H (98-107) mmol/L Carbon Dioxide 22.8 (21.0-32.0) mmol/L BUN 8 (7.0-18.0) mg/dL Creatinine 0.6 (0.6-1.0) mg/dL Est Cr Clr Drug Dosing 80.83 mL/min Estimated GFR (MDRD) > 60.0 ml/min Glucose 94 (74-106) mg/dL Calcium 8.4 L (8.5-10.1) mg/dL Total Bilirubin 0.8 (0.2-1.0) mg/dL AST 21 (15-37) IU/L ALT 14 (14-63) IU/L Alkaline Phosphatase 86 (46-116) U/L Troponin I (0.000-0.056) ng/mL Total Protein 5.8 L (6.4-8.2) g/dL Albumin 2.2 L (3.4-5.0) g/dL Globulin 3.6 (2.6-4.0) g/dL Albumin/Globulin Ratio 0.6 L (0.9-1.6) Med Orders - Current: Current Medications Acetaminophen (Tylenol) 650 mg PO Q6H PRN PRN Reason: Fever Last Admin: 05/28/19 09:00 Dose: 650 mg Albuterol/Ipratropium (Duoneb 3.0-0.5 Mg/3 Ml) 3 ml NEB Q4HRRT PRN PRN Reason: Shortness of Breath Last Admin: 05/28/19 09:06 Dose: 3 ml Aspirin (Aspirin) 325 mg PO DAILY [facility] Last Admin: 05/28/19 09:07 Dose: Not Given Benzonatate (Tessalon Perles) 200 mg PO TID [facility] Last Admin: 05/28/19 06:02 Dose: 200 mg Bupropion HCl (Wellbutrin Xl) 150 mg PO DAILY [facility] Last Admin: 05/28/19 09:07 Dose: Not Given Guaifenesin/Dextromethorphan (Robitussin Dm) 10 ml PO Q6H PRN PRN Reason: Congestion Last Admin: 05/28/19 00:34 Dose: 10 ml Sodium Chloride (Normal Saline) 1,000 mls @ 125 mls/hr IV STAT [facility] Last Admin: 05/28/19 07:13 Dose: 125 mls/hr Levofloxacin/Dextrose 750 mg/ (Premix) 150 mls @ 100 mls/hr IV Q24H [facility] Stop: 06/03/19 14:29 Pramipexole Dihydrochloride (Mirapex) 1.5 mg PO BEDTIME [facility] Discontinued Medications Albuterol/Ipratropium (Duoneb 3.0-0.5 Mg/3 Ml) 3 ml NEB ONETIME ONE Stop: 05/27/19 12:59 Last Admin: 05/27/19 13:12 Dose: 3 ml Albuterol/Ipratropium (Duoneb 3.0-0.5 Mg/3 Ml) 3 ml NEB ONETIME ONE Stop: 05/27/19 15:24 Last Admin: 05/27/19 15:26 Dose: 3 ml Carvedilol (Coreg) 6.25 mg PO DAILY [facility] Levofloxacin/Dextrose 750 mg/ (Premix) 150 mls @ 100 mls/hr IV ONETIME ONE Stop: 05/27/19 14:28 Last Admin: 05/27/19 13:12 Dose: 100 mls/hr Pramipexole Dihydrochloride (Mirapex) 1.5 mg PO DAILY [facility] Last Admin: 05/28/19 09:08 Dose: Not Given - Exam Quality Assessment: No: Supplemental Oxygen General: Alert, Oriented HEENT: EOMI Neck: Supple Lungs: Rales, Rhonchi. No: Crackles Cardiovascular: Regular Rate, Regular Rhythm GI/Abdominal Exam: Soft, Non-Tender Skin: Warm, Dry, Intact Neurological: No New Focal Deficit Psy/Mental Status: Alert, Normal Affect, Normal Mood - Problem List & Annotations (1) Pneumonia SNOMED Code(s): 129985547 Code(s): J18.9 - PNEUMONIA, UNSPECIFIED ORGANISM Status: Acute Current Visit: Yes (2) HTN (hypertension) SNOMED Code(s): 29755385 Code(s): I10 - ESSENTIAL (PRIMARY) HYPERTENSION Status: Chronic Priority : Medium Current Visit: No Qualifiers: Hypertension type: essential hypertension Qualified Code(s): I10 - Essential (primary) hypertension - Problem List Review Problem List Initiated/Reviewed/Updated: Yes - My Orders Last 24 Hours: My Active Orders 05/27/19 18:22 Code Status [Resuscitation Status] Routine 05/27/19 18:23 Intake and Output [RC] ASDIRECTED Vital Signs [RC] Q4H 05/27/19 18:25 Dextromethorphan/guaiFENesin [Robitussin DM] 10 ml PO Q6H PRN 05/27/19 18:26 Acetaminophen [Tylenol] 650 mg PO Q6H PRN Albuterol/Ipratropium [DuoNeb 3.0-0.5 MG/3 ML] 3 ml NEB Q4HRRT PRN 05/27/19 18:29 RT Aerosol Therapy [RC] ASDIRECTED 05/28/19 08:00 Nursing Bedside Swallow Screen [RC] ASDIRECTED 05/28/19 09:00 Aspirin 325 mg PO DAILY buPROPion [Wellbutrin XL] 150 mg PO DAILY 05/28/19 13:00 Levofloxacin/Dextrose 5%-Water [Levaquin in D5W 750 MG/150 ML] 750 mg Premix Bag 1 bag IV Q24H 05/28/19 21:00 Pramipexole [Mirapex] 1.5 mg PO BEDTIME 05/28/19 Breakfast Heart Healthy Diet [DIET] 05/29/19 05:11 Chest 2V [CR] AM CBC WITH AUTO DIFF [HEME] AM COMPREHENSIVE METABOLIC PN,CMP [CHEM] AM 05/30/19 05:11 CBC WITH AUTO DIFF [HEME] AM COMPREHENSIVE METABOLIC PN,CMP [CHEM] AM - Plan Plan:: assessment: 1. B/L Pneumonia possibly secondary to aspiration. 2. Past medical history: lupus, hypertension, hypothyroidism Plan: DNR/DNI. Intake outtake per routine. Vitals per routine. Telemetry. Diet:heart healthy. DVT prophylaxis: SCDs. 1. Pneumonia: continue Levaquin 750 IV_DAILY. We'll consider switching antibiotics to ampicillin sulbactam; if 1o response./IV fluids 125 mL hourly. Dextromethorphan/guaifenesin when necessary. Tylenol 650 every 6 hours when necessary. Consider a swallow study; if aspiration is a more likely cause of pneumonia. Wean off supp O2 per routine 2. past medical history: patient claims to not taking medication for blood pressure, hypothyroidism or depression. We'll continue other medications.
[2019-05-28] MEDS ORDERED: Levofloxacin/Dextrose 5%-Water 750 MG in Premix Bag 1 BAG IV SCH (13:00)
[2019-05-28] MEDS ORDERED: Melatonin 3 MG Tab PO PRN (18:41)
[2019-05-28] MEDS ORDERED: Pramipexole 0.25 MG Tab PO SCH (21:00)
[2019-05-28] MEDS: oxyCODONE 5 MG Tab PO PRN (21:15)
[2019-05-29] MEDS: Sodium Chloride 0.9% 1,000 ML IV SCH (00:05)
[2019-05-29] MEDS ORDERED: Ondansetron 4 MG/2 ML SDV IVPUSH PRN (01:48)
[2019-05-29] MEDS: oxyCODONE 5 MG Tab PO PRN (07:05)
[2019-05-29 07:13] LABS: BLOOD UREA NITROGEN,BUN 6 mg/dL (7.0-18.0); CARBON DIOXIDE,CO2 24.1 mmol/L (21.0-32.0); CHLORIDE,CL 108 mmol/L (98-107); GLUCOSE RANDOM 107 mg/dL (74-106); POTASSIUM,K 4.2 mmol/L (3.5-5.1); SODIUM,NA 140 mmol/L (136-145)
[2019-05-29] MEDS: guaiFENesin/Dextromethorphan 100-10 MG/5 ML Soln 10 ML Cup PO PRN (07:21)
[2019-05-29 08:11] VITALS: BP 122/62
--- NOTE | 2019-05-29 12:03 | PCM.DCSUM1 ---
<Kwasi Brown - Last Filed: 05/29/19 12:02> Discharge Summary - Hospital Course Free Text/Narrative:: discharge summary Admission date May 27 Discharge date May 29, 2019 Admission diagnoses: bilateral pneumonia with outpatient medication failure Past medical history: hypothyroidism, hypertension, depression, anxiety Procedures: none Consultations: none Hospital course: 58-year-old female with a past medical history of hypothyroidism, hypertension, anxiety presented to [facility] ED with worsening shortness of breath, fever, MAXIMUM TEMPERATURE 101.4, malaise: symptoms have been going on for about a week was prescribed azithromycin with benzonatate; patient however developed worsening interval symptoms; on admission to ED; chest x-ray showed pneumonia right middle lobe. And left lower lobe pneumonia; patient was initiated on Levaquin 750 and supplemental oxygen. Following 2 days of admission; respiratory status improved; weaned off of supplemental O2; patient endorsed subjective improvement of symptoms; requesting to go home states she feels better; given additional 1 week of Levaquin; work note for 1 week; advised to follow-up PCP in 1 week. Also advised to do a repeat chest x- ray in 6-8 weeks. Also advised to contact/notify provider if worsening fever, chills, body aches, shortness of breath, increasing wheezing. Discharge condition: stable/improved : Disposition: home Discharge instructions: Increase fluid intake. Avoid work for one week. Continue antibiotics. Pro-air every 4 hours when necessary wheezing/shortness of breath. Discharge medications:Levaquin 750 daily 7 days follow-up: PCP within one week; repeat chest x-ray in 6-8 weeks. Notify provider of worsening fever, shortness of breath, chills, body aches, chest pain , dizziness. - Discharge Data Discharge Date: 05/29/19 Discharge Disposition: Home, Self-Care 01 Condition: Stable - Discharge Diagnosis/Problem(s) (1) Pneumonia SNOMED Code(s): 403785581 ICD Code: J18.9 - PNEUMONIA, UNSPECIFIED ORGANISM Status: Acute (2) HTN (hypertension) SNOMED Code(s): 02513248 ICD Code: I10 - ESSENTIAL (PRIMARY) HYPERTENSION Status: Chronic Priority : Medium Qualifiers: Hypertension type: essential hypertension Qualified Code(s): I10 - Essential (primary) hypertension - Patient Instructions Activity: Cough & Deep Breathe Driving: Do Not Drive Notify Provider of: Fever Other/Special Instructions: patient advised to follow up with PCP in 1-week. advised to contact [place] if symptoms of fever, chills, bodyaches , increasing shortness of breath, increasing hedache or dizziness occcur. Advised to drink plenty of fluids. Follow-up with PCP in 1-wekk. repeat chest xray in 6 -weeks. No work for 7-days or until cleared by primary care. - Discharge Plan *PRESCRIPTION DRUG MONITORING PROGRAM REVIEWED*: No *COPY OF PRESCRIPTION DRUG MONITORING REPORT IN PATIENT FRANSISCO: No Prescriptions/Med Rec: Albuterol [Ventolin HFA] 1 puff INH Q6H PRN 10 Days #1 puff PRN Reason: Wheezing levoFLOXacin [Levaquin] 750 mg PO DAILY 7 Days #7 tab Home Medications: Home Meds Ondansetron HCl [Zofran] 4 mg PO DAILY PRN 05/27/16 [History] Trimethobenzamide HCl 100 gm MC DAILY 05/27/16 [History] traMADol [Ultram] 50 mg PO ASDIRECTED PRN 05/27/16 [History] Benzonatate 200 mg PO Q8HR PRN 05/27/19 [History] Pramipexole [Mirapex] 0.5 mg PO ASDIRECTED PRN 05/28/19 [History] Albuterol [Ventolin HFA] 1 puff INH Q6H PRN 10 Days #1 puff 05/29/19 [Rx] Dextromethorphan/guaiFENesin [Robitussin DM] 10 ml PO Q6H PRN cup 05/29/19 [Rx] buPROPion [buPROPion XL] 150 mg PO DAILY tab.er 05/29/19 [Rx] levoFLOXacin [Levaquin] 750 mg PO DAILY 7 Days #7 tab 05/29/19 [Rx] Patient Handouts: Levofloxacin tablets, Community-Acquired Pneumonia, Adult, [id number] Referrals: Clementina Greco PA [Physician [employer]] - 06/10/19 8:00 am (Arrive 15 minutes early with a photo ID and insurance card.) - Discharge Summary/Plan Comment DC Time >30 min.: No - Patient Data Vitals - Most Recent: Last Vital Signs Temp 99.2 F 05/29/19 08:00 Pulse 79 05/29/19 08:00 Resp 16 05/29/19 08:00 BP 122/62 05/29/19 08:00 Pulse Ox 94 L 05/29/19 08:00 Weight - Most Recent: 79.742 kg I&O - Last 24 hours: Intake & Output 05/28/19 05/29/19 05/29/19 22:59 06:59 14:59 Intake Total 1360 3190 600 Output Total 1100 1700 300 Balance 260 1490 300 Lab Results - Last 24 hrs: Laboratory Results - last 24 hr 05/27/19 05/29/19 05/29/19 Range/Units 13:18 05:55 05:55 WBC 11.39 H (4.0-11.0) K/uL RBC 3.91 L (4.30-5.90) M/uL Hgb 12.1 (12.0-16.0) g/dL Hct 38.2 (36.0-46.0) % MCV 97.7 (80.0-98.0) fL MCH 30.9 (27.0-32.0) pg MCHC 31.7 (31.0-37.0) g/dL RDW Std Deviation 49.0 (28.0-62.0) fl RDW Coeff of Danial 14 (11.0-15.0) % Plt Count 339 (150-400) K/uL MPV 9.70 (7.40-12.00) fL Neut % (Auto) 73.8 (48.0-80.0) % Lymph % (Auto) 18.6 (16.0-40.0) % [place] % (Auto) 6.5 (0.0-15.0) % Eos % (Auto) 1.0 (0.0-7.0) % Baso % (Auto) 0.1 (0.0-1.5) % Neut # (Auto) 8.4 H (1.4-5.7) K/uL Lymph # (Auto) 2.1 (0.6-2.4) K/uL [place] # (Auto) 0.7 (0.0-0.8) K/uL Eos # (Auto) 0.1 (0.0-0.7) K/uL Baso # (Auto) 0.0 (0.0-0.1) K/uL Nucleated RBC % 0.0 /100WBC Nucleated RBCs # 0 K/uL Sodium 140 (136-145) mmol/L Potassium 4.2 (3.5-5.1) mmol/L Chloride 108 H (98-107) mmol/L Carbon Dioxide 24.1 (21.0-32.0) mmol/L BUN 6 L (7.0-18.0) mg/dL Creatinine 0.7 (0.6-1.0) mg/dL Est Cr Clr Drug Dosing 69.28 mL/min Estimated GFR (MDRD) > 60.0 ml/min Glucose 107 H (74-106) mg/dL Calcium 8.5 (8.5-10.1) mg/dL Total Bilirubin 0.5 (0.2-1.0) mg/dL AST 20 (15-37) IU/L ALT 17 (14-63) IU/L Alkaline Phosphatase 80 (46-116) U/L B-Natriuretic Peptide 50 (<100) PG/ML Total Protein 5.8 L (6.4-8.2) g/dL Albumin 2.1 L (3.4-5.0) g/dL Globulin 3.7 (2.6-4.0) g/dL Albumin/Globulin Ratio 0.6 L (0.9-1.6) SHOAIB Results - Last 24 hrs: Microbiology 05/27/19 13:28 Aerobic Blood Culture - Preliminary Blood - Venous - Lab Draw NO GROWTH AFTER 1 DAY Anaerobic Blood Culture - Preliminary NO GROWTH AFTER 1 DAY 05/27/19 13:18 Aerobic Blood Culture - Preliminary Blood - Venous NO GROWTH AFTER 1 DAY Anaerobic Blood Culture - Preliminary NO GROWTH AFTER 1 DAY Med Orders - Current: Current Medications Discontinued Medications Acetaminophen (Tylenol) 650 mg PO Q6H PRN PRN Reason: Fever Last Admin: 05/28/19 15:52 Dose: 650 mg Albuterol/Ipratropium (Duoneb 3.0-0.5 Mg/3 Ml) 3 ml NEB ONETIME ONE Stop: 05/27/19 12:59 Last Admin: 05/27/19 13:12 Dose: 3 ml Albuterol/Ipratropium (Duoneb 3.0-0.5 Mg/3 Ml) 3 ml NEB ONETIME ONE Stop: 05/27/19 15:24 Last Admin: 05/27/19 15:26 Dose: 3 ml Albuterol/Ipratropium (Duoneb 3.0-0.5 Mg/3 Ml) 3 ml NEB Q4HRRT PRN PRN Reason: Shortness of Breath Last Admin: 05/28/19 21:24 Dose: 3 ml Aspirin (Aspirin) 325 mg PO DAILY [facility] Last Admin: 05/28/19 09:07 Dose: Not Given Benzonatate (Tessalon Perles) 200 mg PO TID [facility] Last Admin: 05/28/19 13:09 Dose: 200 mg Bupropion HCl (Wellbutrin Xl) 150 mg PO DAILY [facility] Last Admin: 05/28/19 09:07 Dose: Not Given Carvedilol (Coreg) 6.25 mg PO DAILY [facility] Guaifenesin/Dextromethorphan (Robitussin Dm) 10 ml PO Q6H PRN PRN Reason: Congestion Last Admin: 05/29/19 07:21 Dose: 10 ml Levofloxacin/Dextrose 750 mg/ (Premix) 150 mls @ 100 mls/hr IV ONETIME ONE Stop: 05/27/19 14:28 Last Admin: 05/27/19 13:12 Dose: 100 mls/hr Sodium Chloride (Normal Saline) 1,000 mls @ 125 mls/hr IV STAT [facility] Last Admin: 05/29/19 00:05 Dose: 125 mls/hr Levofloxacin/Dextrose 750 mg/ (Premix) 150 mls @ 100 mls/hr IV Q24H [facility] Stop: 06/03/19 14:29 Last Admin: 05/28/19 13:08 Dose: 100 mls/hr Melatonin (Melatonin) 3 mg PO BEDTIME PRN PRN Reason: Insomnia Last Admin: 05/28/19 21:14 Dose: 3 mg Ondansetron HCl (Zofran) 4 mg IVPUSH Q4H PRN PRN Reason: Nausea Last Admin: 05/29/19 02:06 Dose: 4 mg Oxycodone HCl (Oxycodone) 5 mg PO Q4H PRN PRN Reason: Pain Last Admin: 05/29/19 07:05 Dose: 5 mg Pramipexole Dihydrochloride (Mirapex) 1.5 mg PO DAILY [facility] Last Admin: 05/28/19 09:08 Dose: Not Given Pramipexole Dihydrochloride (Mirapex) 1.5 mg PO BEDTIME [facility] Last Admin: 05/28/19 21:56 Dose: 1.5 mg <Luis Stewart - Last Filed: 05/29/19 13:29> Discharge Summary - Hospital Course HPI Initial Comments: I have examined the patient independently of medical insurance claims specialist, Dr. Stephanie MD. I have discussed the case with him. I have reviewed and agree with the plan of care as outlined for the patient by him. Please see orders. - Patient Data Vitals - Most Recent: Last Vital Signs Temp 37.3 C 05/29/19 08:00 Pulse 79 05/29/19 08:00 Resp 16 05/29/19 08:00 BP 122/62 05/29/19 08:00 Pulse Ox 94 L 05/29/19 08:00 I&O - Last 24 hours: Intake & Output 05/28/19 05/29/19 05/29/19 22:59 06:59 14:59 Intake Total 1360 3190 600 Output Total 1100 1700 300 Balance 260 1490 300 Lab Results - Last 24 hrs: Laboratory Results - last 24 hr 05/27/19 05/29/19 05/29/19 Range/Units 13:18 05:55 05:55 WBC 11.39 H (4.0-11.0) K/uL RBC 3.91 L (4.30-5.90) M/uL Hgb 12.1 (12.0-16.0) g/dL Hct 38.2 (36.0-46.0) % MCV 97.7 (80.0-98.0) fL MCH 30.9 (27.0-32.0) pg MCHC 31.7 (31.0-37.0) g/dL RDW Std Deviation 49.0 (28.0-62.0) fl RDW Coeff of Danial 14 (11.0-15.0) % Plt Count 339 (150-400) K/uL MPV 9.70 (7.40-12.00) fL Neut % (Auto) 73.8 (48.0-80.0) % Lymph % (Auto) 18.6 (16.0-40.0) % [place] % (Auto) 6.5 (0.0-15.0) % Eos % (Auto) 1.0 (0.0-7.0) % Baso % (Auto) 0.1 (0.0-1.5) % Neut # (Auto) 8.4 H (1.4-5.7) K/uL Lymph # (Auto) 2.1 (0.6-2.4) K/uL [place] # (Auto) 0.7 (0.0-0.8) K/uL Eos # (Auto) 0.1 (0.0-0.7) K/uL Baso # (Auto) 0.0 (0.0-0.1) K/uL Nucleated RBC % 0.0 /100WBC Nucleated RBCs # 0 K/uL Sodium 140 (136-145) mmol/L Potassium 4.2 (3.5-5.1) mmol/L Chloride 108 H (98-107) mmol/L Carbon Dioxide 24.1 (21.0-32.0) mmol/L BUN 6 L (7.0-18.0) mg/dL Creatinine 0.7 (0.6-1.0) mg/dL Est Cr Clr Drug Dosing 69.28 mL/min Estimated GFR (MDRD) > 60.0 ml/min Glucose 107 H (74-106) mg/dL Calcium 8.5 (8.5-10.1) mg/dL Total Bilirubin 0.5 (0.2-1.0) mg/dL AST 20 (15-37) IU/L ALT 17 (14-63) IU/L Alkaline Phosphatase 80 (46-116) U/L B-Natriuretic Peptide 50 (<100) PG/ML Total Protein 5.8 L (6.4-8.2) g/dL Albumin 2.1 L (3.4-5.0) g/dL Globulin 3.7 (2.6-4.0) g/dL Albumin/Globulin Ratio 0.6 L (0.9-1.6) SHOAIB Results - Last 24 hrs: Microbiology 05/27/19 13:28 Aerobic Blood Culture - Preliminary Blood - Venous - Lab Draw NO GROWTH AFTER 1 DAY Anaerobic Blood Culture - Preliminary NO GROWTH AFTER 1 DAY 05/27/19 13:18 Aerobic Blood Culture - Preliminary Blood - Venous NO GROWTH AFTER 1 DAY Anaerobic Blood Culture - Preliminary NO GROWTH AFTER 1 DAY Med Orders - Current: Current Medications Discontinued Medications Acetaminophen (Tylenol) 650 mg PO Q6H PRN PRN Reason: Fever Last Admin: 05/28/19 15:52 Dose: 650 mg Albuterol/Ipratropium (Duoneb 3.0-0.5 Mg/3 Ml) 3 ml NEB ONETIME ONE Stop: 05/27/19 12:59 Last Admin: 05/27/19 13:12 Dose: 3 ml Albuterol/Ipratropium (Duoneb 3.0-0.5 Mg/3 Ml) 3 ml NEB ONETIME ONE Stop: 05/27/19 15:24 Last Admin: 05/27/19 15:26 Dose: 3 ml Albuterol/Ipratropium (Duoneb 3.0-0.5 Mg/3 Ml) 3 ml NEB Q4HRRT PRN PRN Reason: Shortness of Breath Last Admin: 05/28/19 21:24 Dose: 3 ml Aspirin (Aspirin) 325 mg PO DAILY [facility] Last Admin: 05/28/19 09:07 Dose: Not Given Benzonatate (Tessalon Perles) 200 mg PO TID [facility] Last Admin: 05/28/19 13:09 Dose: 200 mg Bupropion HCl (Wellbutrin Xl) 150 mg PO DAILY [facility] Last Admin: 05/28/19 09:07 Dose: Not Given Carvedilol (Coreg) 6.25 mg PO DAILY [facility] Guaifenesin/Dextromethorphan (Robitussin Dm) 10 ml PO Q6H PRN PRN Reason: Congestion Last Admin: 05/29/19 07:21 Dose: 10 ml Levofloxacin/Dextrose 750 mg/ (Premix) 150 mls @ 100 mls/hr IV ONETIME ONE Stop: 05/27/19 14:28 Last Admin: 05/27/19 13:12 Dose: 100 mls/hr Sodium Chloride (Normal Saline) 1,000 mls @ 125 mls/hr IV STAT [facility] Last Admin: 05/29/19 00:05 Dose: 125 mls/hr Levofloxacin/Dextrose 750 mg/ (Premix) 150 mls @ 100 mls/hr IV Q24H [facility] Stop: 06/03/19 14:29 Last Admin: 05/28/19 13:08 Dose: 100 mls/hr Melatonin (Melatonin) 3 mg PO BEDTIME PRN PRN Reason: Insomnia Last Admin: 05/28/19 21:14 Dose: 3 mg Ondansetron HCl (Zofran) 4 mg IVPUSH Q4H PRN PRN Reason: Nausea Last Admin: 05/29/19 02:06 Dose: 4 mg Oxycodone HCl (Oxycodone) 5 mg PO Q4H PRN PRN Reason: Pain Last Admin: 05/29/19 07:05 Dose: 5 mg Pramipexole Dihydrochloride (Mirapex) 1.5 mg PO DAILY [facility] Last Admin: 05/28/19 09:08 Dose: Not Given Pramipexole Dihydrochloride (Mirapex) 1.5 mg PO BEDTIME [facility] Last Admin: 05/28/19 21:56 Dose: 1.5 mg
--- NOTE | 2019-05-29 13:22 | CR ---
INDICATION: Pneumonia, effusion TECHNIQUE: Chest radiograph 2 views COMPARISON: 05/27/2019 FINDINGS: Mediastinum: The mediastinum is normal in appearance. The heart silhouette is normal in size and morphology. Lung: Diffuse ground-glass and fine reticular interstitial infiltrates are present bilaterally with slight interval decrease in airspace opacities in the lung bases. A trace right pleural effusion is noted. No pneumothorax is identified. IMPRESSIONS: 1. Diffuse ground-glass and fine reticular interstitial infiltrates are present bilaterally with slight interval decrease in airspace opacities in the lung bases. 2. A trace right pleural effusion is noted. Dictated by Roscoe Duffy MD @ 05/29/2019 1:20:12 PM Dictated by: Roscoe Duffy MD @ 05/29/2019 13:20:18 (Electronically Signed)
== END 2019-05-29 10:35 | disposition home or self-care (01) ==
LOC: MW.ED 12:47 → MW.MS 15:26
PROVIDERS: ADMIT Internal Medicine; ATTEND Internal Medicine
DX: J18.1 Lobar pneumonia, unspecified organism (principal); E03.9 Hypothyroidism, unspecified; I10 Essential (primary) hypertension; F32.9 Major depressive disorder, single episode, unspecified; F41.9 Anxiety disorder, unspecified; J45.909 Unspecified asthma, uncomplicated; Z88.5 Allergy status to narcotic agent; Z88.0 Allergy status to penicillin; Z79.899 Other long term (current) drug therapy; Z79.2 Long term (current) use of antibiotics
CPT/HCPCS: 36415; 36600; 71045; 71046; 80053; 82803; 83605; 83880; 84484; 85025; 85610; 87040; 93005; 94640; 96365; 96366; 99285; A9270; J1956; J2405; J7040; 99284; J7620-GY